=== PATIENT | female | born 1950 | race Caucasian/White ===

== ENCOUNTER → 2019-07-19 | Outpatient (CLI) | payer MEDICARE ==
[~2019-07-19] MED LIST: ACET325T14 PO; BISA10SU65 PR; CALC1TAB68 PO; DIAZ5TAB4 PO; HYDR-3245 PO; MULT-484 PO; None per pt; ONDA4TAB13 PO; RIVA10TA2 PO; SENN-177 PO; TRAM50TA2 PO
== END | disposition home or self-care (01) ==
LOC: STAR 13:17
PROVIDERS: ATTEND Obstetrics & Gynecology Female Pelvic Medicine and Reconstructive Surgery
DX: Z01.818 Encounter for other preprocedural examination (principal); N81.10 Cystocele, unspecified; N81.6 Rectocele; N39.3 Stress incontinence (female) (male)
CPT/HCPCS: 93005

== ENCOUNTER 2019-08-09 05:37 | Day surgery (SDC) | payer MEDICARE ==
[~2019-08-09] VITALS: Ht 162.6 cm; Wt 60.6 kg
[2019-08-09] MEDS ORDERED: LACTATED RINGERS 1,000 ML IV SCH ×2 (06:13→11:02)
[2019-08-09 06:15] VITALS: BP 108/73
[2019-08-09] MEDS ORDERED: NEOMY/POLYMYXIN B GU IRR. 1 ML ONE (07:01)
[2019-08-09] MEDS ORDERED: BUPIVACAINE/PF-EPI 0.25% 1:200K ONE (07:01)
[2019-08-09] MEDS ORDERED: INDIGO CARMINE 0.8%, 5ML ONE (07:01)
[2019-08-09] MEDS ORDERED: BUPIVACAINE/PF 0.25% ONE (07:02)
[2019-08-09] MEDS ORDERED: EPINEPHRINE 1 MG/ML, 1ML ONE (07:02)
[2019-08-09] MEDS ORDERED: FENTANYL PF 250 MCG/5ML ONE (07:17)
[2019-08-09] MEDS ORDERED: DEXAMETHASONE 4 MG/ML, 1ML ONE (07:21)
[2019-08-09] MEDS ORDERED: GLYCOPYRROLATE 0.2MG/1ML, 5ML ONE (07:21)
[2019-08-09] MEDS ORDERED: CEFAZOLIN 1,000 MG ONE (07:21)
[2019-08-09] MEDS ORDERED: NEOSTIGMINE 1 MG/ML, 10ML ONE (07:21)
[2019-08-09] MEDS ORDERED: SUCCINYLCHOLINE 20 MG/ML, 10ML ONE (07:21)
[2019-08-09] MEDS ORDERED: ONDANSETRON 2MG/ML, 2ML ONE (07:21)
[2019-08-09] MEDS ORDERED: PROPOFOL 10 MG/ML, 20ML ONE (07:21)
[2019-08-09] MEDS ORDERED: ROCURONIUM 10MG/ML,5ML ONE (07:21)
[2019-08-09] MEDS ORDERED: PROMETHAZINE 25 MG SUPP PR PRN (07:30)
[2019-08-09] MEDS ORDERED: ACETAMINOPHEN 325 MG TABLET PO PRN (07:30)
[2019-08-09] MEDS ORDERED: DIAZEPAM 5 MG/ML, 2ML IVPush PRN (07:30)
[2019-08-09] MEDS ORDERED: OXYcodone 5 MG/5 ML ORAL.SOL UDC PO PRN (07:30)
[2019-08-09] MEDS ORDERED: FENTANYL PF 100 MCG/2ML IV PRN (07:30)
[2019-08-09] MEDS ORDERED: HYDROmorphone 2 MG/ML, 1ML IVPush PRN (07:30)
[2019-08-09] MEDS ORDERED: PROMETHAZINE 25 MG/ML, 1ML IV PRN (07:30)
[2019-08-09] MEDS ORDERED: ONDANSETRON 2MG/ML, 2ML IV PRN (07:30)
[2019-08-09] MEDS ORDERED: ONDANSETRON ODT 8 MG PO PRN (07:30)
[2019-08-09] MEDS ORDERED: LIDOCAINE 2% 100MG/5ML SYRINGE ONE (07:33)
[2019-08-09] MEDS ORDERED: EPHEDRINE 50 MG/ML, 1ML ONE (07:50)
[2019-08-09] MEDS ORDERED: KETOROLAC 30 MG/1 ML ONE (11:20)
[2019-08-09] MEDS ORDERED: IBUPROFEN 600 MG TABLET PO PRN (11:30)
[2019-08-09] MEDS ORDERED: PROMETHAZINE 12.5 MG SUPP PR ONE (11:30)
[2019-08-09] MEDS ORDERED: ONDANSETRON 2MG/ML, 2ML IVPush PRN (11:30)
[2019-08-09] MEDS ORDERED: HYDROcodone/APAP 5/325 TABLET PO PRN (11:30)
[2019-08-09] MEDS ORDERED: KETOROLAC 30 MG/1 ML IVPush ONE (11:30)
[2019-08-09] MEDS ORDERED: TETRACAINE OPHTH 0.5%, 0.6ML RIGHTEYE ONE (14:00)
[2019-08-09] MEDS ORDERED: SODIUM CHLORIDE 0.9% 500 ML IV ONE ×2 (17:00)
== END 2019-08-09 17:15 | disposition home or self-care (01) ==
LOC: OUT 05:37
PROVIDERS: ATTEND Obstetrics & Gynecology Female Pelvic Medicine and Reconstructive Surgery
DX: N81.4 Uterovaginal prolapse, unspecified (principal); D25.1 Intramural leiomyoma of uterus; N36.2 Urethral caruncle; N39.3 Stress incontinence (female) (male); R15.9 Full incontinence of feces; R35.0 Frequency of micturition; R33.8 Other retention of urine; Z90.49 Acquired absence of other specified parts of digestive tract
CPT/HCPCS: 57250; 57288; 57425; 58542; 88307; 88311; C1771; C1781; J0171; J0690; J1100; J1885; J2405; J2704; J2710; J3010; J3490; J7040; J0330